=== PATIENT | female | born 2000 | race African-American/Black ===

== ENCOUNTER 2023-08-05 11:31 | Emergency (ER) | payer BC ==
[~2023-08-05] VITALS: Ht 170.2 cm; Wt 63.5 kg
[2023-08-05] MEDS ORDERED: IBUPROFEN 800 MG TABLET PO ONE (12:30)
[2023-08-05 15:05] VITALS: BP 127/76; TEMP 98; O2SAT 98
== END 2023-08-05 15:07 | disposition home or self-care (01) ==
LOC: ER 11:44
DX: S16.1XXA Strain of muscle, fascia and tendon at neck level, initial encounter (principal); S09.90XA Unspecified injury of head, initial encounter; S80.212A Abrasion, left knee, initial encounter; S80.211A Abrasion, right knee, initial encounter; S21.152A Open bite of left front wall of thorax without penetration into thoracic cavity, initial encounter; Y04.1XXA Assault by human bite, initial encounter; Y93.89 Activity, other specified; Y92.89 Other specified places as the place of occurrence of the external cause; Y99.8 Other external cause status
CPT/HCPCS: 70450; 72125; 73120; A4663